=== PATIENT | female | born 1945 | race Caucasian/White ===

== ENCOUNTER 2019-01-25 14:40 | Observation (INO) ==
[2019-01-25] MEDS ORDERED: MOBIC PO PRN (15:11)
[2019-01-25] MEDS ORDERED: LOVENOX SUBQ ONE (15:55)
--- NOTE | 2019-01-25 16:17 | EKG Report ---
Test Performed on : 01/25/2019 3:25:32 PM Test Reason : new onset afib/sob Blood Pressure : / mmHG Vent. Rate : 095 BPM Atrial Rate : 095 BPM P-R Int : 162 ms QRS Dur : 076 ms QT Int : 340 ms P-R-T Axes : 062 039 047 degrees QTc Int : 427 ms Sinus rhythm. with premature atrial complexes. Low voltage QRS Cannot rule out Anterior infarct , age undetermined Abnormal ECG No previous ECGs available Confirmed by Zach PARKER, Shaun Mensah ([id number]) on 01/28/2019 4:37:53 PM
[2019-01-25 16:27] LABS: BASO# 0.08 X1000 (0.0-0.2); BASO% 0.5 % (0.0-0.8); EOS# 0.04 X1000 (0.0-0.7); EOS% 0.3 % (0.0-10.0); HEMOGLOBIN 11.9 g/dL (12.0-16.0); IMM GRAN# 0.06 X1000 (0.0-0.04); IMM GRAN% 0.4 % (0.0-0.5); LYMPH# 2.41 X1000 (1.2-3.4); MCH 28.3 PG (27-31); MCHC 33.1 g/dL (33-37); MCV 85.7 FL (81-99); MONO# 0.78 X1000 (0.11-0.59); MONO% 5.2 % (1.7-9.3); MPV 9.8 FL (7.4-10.4); NEUT# 11.72 X1000 (1.4-6.5); NEUT% 77.6 % (42.2-75.2); PLT 463 X1000 (130-400); WBC 15.09 X1000 (4.8-10.8)
[2019-01-25 16:40] LABS: EOS 2 % (1-10); LYMPHS 8 % (21-51); MONO 3 % (1-9); SEGS 84 % (42-75)
[2019-01-25 16:46] LABS: AGAP 10; ALKALINE PHOSPHATASE 106 U/L (32-104); BUN 17 mg/dL (8-22); CALCIUM 10.1 mg/dL (8.8-10.2); CHLORIDE 95 mmol/L (98-107); COSMO 265; CREATININE 0.7 mg/dL (0.5-0.9); ESTIMATED GFR > 60; GLUCOSE 108 mg/dL (70-104); GOT 21 U/L (10-30); GPT 41 U/L (10-36); MAGNESIUM 2.3 mg/dL (1.5-2.7); POTASSIUM 4.8 mmol/L (3.5-5.1); SODIUM 131 mmol/L (136-145); TCO2 26 mmol/L (25-35); TOTAL BILIRUBIN 0.59 mg/dL (0.20-1.00)
[2019-01-25 17:22] LABS: URINE SOURCE CLEAN CATCH
[2019-01-25 17:26] LABS: BILIRUBIN URINE NEGATIVE (NEGATIVE); BLOOD URINE NEGATIVE (NEGATIVE); COLOR STRAW; GLUCOSE URINE NEGATIVE (NEGATIVE); KETONE URINE NEGATIVE (NEGATIVE); LEUKOCYTES URINE LARGE (NEGATIVE); NITRITE URINE NEGATIVE (NEGATIVE); PROTEIN URINE NEGATIVE (NEGATIVE); TURBIDITY URINE CLEAR (CLEAR); UR EPITHELIAL CELLS <10 /HPF (<10); URINE BACTERIA 1+ /HPF; URINE RBC <10 /HPF (<10); URINE WBC TNTC /HPF (<10); UROBILINOGEN URINE NORMAL (NORMAL)
[2019-01-25] MEDS ORDERED: LOVENOX 1 MG/KG SUBQ ONE (19:19)
[2019-01-25] MEDS ORDERED: ROCEPHIN 1 GM in NS 50 ML IV SCH (19:30)
--- NOTE | 2019-01-25 19:44 | HISTORY AND PHYSICAL ---
CHIEF COMPLAINT: Palpitations. HISTORY OF PRESENT ILLNESS: This is a 73-year-old female with a history of hypertension, high cholesterol and seasonal allergies. She presents as a direct admit from Dr. Bustos's office after being found to be in atrial fibrillation with RVR with rates 100 - 140. The patient reports a sudden onset of palpitations with no accompanying symptoms. She did state that she had 1 episode of palpitations about 15 years ago that spontaneously resolved. On arrival to the floor she was found to be in a sinus rhythm at a rate of 95. PAST MEDICAL HISTORY: Hypertension, hyperlipidemia, osteoarthritis. SOCIAL HISTORY: She denies alcohol, tobacco or illicit drug use. ALLERGIES: Sulfa, with an unknown reaction. MEDICATIONS: Home medication list will be obtained by the nursing staff, and once reviewed we will restart as appropriate. REVIEW OF SYSTEMS: Discussed with the patient, with pertinent positives stated in the HPI. She denied any syncope, dizziness, any chest pain, shortness of breath, cough, fever, chills, any recent weight loss or weight gain, any night sweats, nausea, vomiting, diarrhea, constipation, black or bloody vomitus or stools, hematuria, dysuria, frequency or urgency. PHYSICAL EXAMINATION: GENERAL: This is a 73-year-old female who is lying in the bed in no distress. VITAL SIGNS: Blood pressure is 115/74 with a heart rate of 95, respirations are 18, temperature is 97.9 degrees with room air saturations of 100%. EYES: Pupils equal, round and reactive to light. EOMs are intact. Sclerae anicteric. HEENT: Head is normocephalic, atraumatic. Mucous membranes are moist. NECK: Supple, with trachea midline. CARDIOVASCULAR: Regular rate and rhythm. S1 and S2 appreciated. No murmurs. PULMONARY: Breath sounds are clear with no increased work of breathing noted. Chest rises and falls symmetric with respiration. GASTROINTESTINAL: Abdomen is soft, nontender, nondistended with bowel sounds in all 4 quadrants. GENITOURINARY: She has no CVA nor suprapubic tenderness. NEUROLOGIC: She is alert and oriented x3. SKIN: Warm and dry. ASSESSMENT AND PLAN: 1. Atrial fibrillation with rapid ventricular response. The patient has converted to sinus rhythm. We will give 1 dose of Lovenox 5 mg/kg, and further medications and anticoagulation will be per Cardiology's expertise. Dr. Zenon Lou has been consulted. He did discuss the patient with Dr. Bustos prior to admission. 2. History of hypertension. We will identify her home medications and continue as appropriate. 3. Recent urinary tract infection. We will obtain a urinalysis and a urine culture. Rocephin 1 gm q24 h. Of note, The patient was started on Cipro 01/23. She feels that Cipro is what caused this atrial fibrillation. She refuses to take Cipro at present. We will change her antibiotics. Further treatments pending hospital course. Patient seen and examined by me face to face, all the laboratory, vitals signs and images were reviewed, Patient presented has been sent by primary Doctor due to A fib with RVR, she has a history of hypertension, she has been treated with quinolones for her UTI and she believes this is the cause of her A fib, not sure about history of a fib before, at the moment of my physical exam she was on sinus rhythm, benign physical exam, patient has been evaluated by Cardiology, Dr Lou, he recommended aspirin for this patient, not anticoagulation at this moment, keep the patient with telemetry and discharge tomorrow if no more episodes of a fib, she has leucocytosis, probably do to her UTI, she has been placed on ceftriaxone, I agree with the rest of the [employer]'s assessment and plan, Nestor Valencia MD Dictated by JAKE Mccollum for Nestor Eddy MD cc: JAKE Mccollum MD [facility]
[2019-01-25] MEDS ORDERED: BENADRYL PO SCH (21:00)
[2019-01-25] MEDS ORDERED: ZOCOR PO SCH (21:00)
--- NOTE | 2019-01-26 07:17 | EKG Report ---
Test Performed on : 01/25/2019 7:59:18 PM Test Reason : afib Blood Pressure : / mmHG Vent. Rate : 067 BPM Atrial Rate : 067 BPM P-R Int : 176 ms QRS Dur : 078 ms QT Int : 408 ms P-R-T Axes : 040 046 053 degrees QTc Int : 431 ms Normal sinus rhythm. Normal ECG When compared with ECG of 25-JAN-2019 15:25, (Unconfirmed) premature atrial complexes. are no longer present Confirmed by Zach PARKER, Shaun Mensah ([id number]) on 01/28/2019 4:38:06 PM
[2019-01-26 08:06] LABS: BASO# 0.09 X1000 (0.0-0.2); BASO% 0.8 % (0.0-0.8); EOS# 0.16 X1000 (0.0-0.7); EOS% 1.4 % (0.0-10.0); HEMATOCRIT 36.9 % (37.0-47.0); HEMOGLOBIN 12.1 g/dL (12.0-16.0); IMM GRAN# 0.06 X1000 (0.0-0.04); IMM GRAN% 0.5 % (0.0-0.5); LYMPH# 3.18 X1000 (1.2-3.4); LYMPH% 27.2 % (20.5-51.1); MCH 28.1 PG (27-31); MCHC 32.8 g/dL (33-37); MCV 85.8 FL (81-99); MONO# 0.89 X1000 (0.11-0.59); MONO% 7.6 % (1.7-9.3); MPV 9.8 FL (7.4-10.4); NEUT% 62.5 % (42.2-75.2); PLT 455 X1000 (130-400); RDW 13.3 % (11.5-14.5); WBC 11.68 X1000 (4.8-10.8)
[2019-01-26 08:11] VITALS: BP 114/65
[2019-01-26 08:29] LABS: AGAP 12; BUN 16 mg/dL (8-22); CALCIUM 9.9 mg/dL (8.8-10.2); CHLORIDE 102 mmol/L (98-107); COSMO 277; CREATININE 0.7 mg/dL (0.5-0.9); ESTIMATED GFR > 60; GLUCOSE 107 mg/dL (70-104); POTASSIUM 4.6 mmol/L (3.5-5.1); SODIUM 138 mmol/L (136-145); TCO2 24 mmol/L (25-35)
[2019-01-26] MEDS ORDERED: PRINIVIL PO SCH (09:00)
[2019-01-26] MEDS ORDERED: ASPIRIN PO SCH (09:00)
--- NOTE | 2019-01-26 12:55 | ECHO REPORT ---
ORDER DATE: 01/25/2019 INDICATION: New onset atrial fibrillation. FINDINGS: 1. The right atrium appears normal in size at 3.4 cm. 2. Trace tricuspid regurgitation. RV systolic pressure of 43. 3. Normal RV size and systolic function. 4. Trace pulmonic insufficiency. 5. Mild left atrial enlargement with a volume index of 32. 6. No mitral valve prolapse. Trace mitral regurgitation. 7. Normal LV size, end-diastolic dimension of 4.1. Normal wall thicknesses with a posterior and interventricular septal wall thickness of 0.8 cm each. Normal LV systolic function. Estimated EF of 65% with normal wall motion. 8. The aortic valve appears somewhat sclerotic. It opens well. It is trileaflet. No evidence of stenosis or insufficiency. 9. The aorta appears normal in visualized segments. 10. No pericardial effusion seen. cc: MD Neville Bertrand MD
--- NOTE | 2019-01-26 18:51 | CONSULTATION ---
DATE OF CONSULTATION: 01/25/2019 IMPRESSION: 1. Episode of atrial fibrillation now resolved spontaneously. 2. Hypertension. 3. Hyperlipidemia. RECOMMENDATIONS: 1. Continue aspirin p.o. daily. 2. Echocardiography. 3. If recurrent atrial fibrillation, will consider anticoagulation with Eliquis. HISTORY: This 73-year-old white female with past history of hypertension and hyperlipidemia was referred for admission from Dr. Bustos's office after she was found to be in atrial fibrillation with rapid ventricular rate anywhere from 120 to 140 beats per minute. She reports the onset of tachy palpitations this morning. She had some mild postural lightheadedness with this. She had no chest discomfort nor syncope. She went to Dr. Bustos's office and was found to be in atrial fibrillation. She was given Bystolic 5 mg p.o. which was the only beta-shaka he had in his office. She was referred for admission to [facility] and came here by private automobile with her family driving. Upon arrival here, she has converted back to sinus rhythm. She is otherwise asymptomatic from a cardiovascular standpoint. PAST MEDICAL HISTORY: 1. Hypertension. 2. Hyperlipidemia. 3. Osteoarthritis. 4. Recent urinary tract infection treated with ciprofloxacin. ALLERGIES: She is allergic or intolerant to sulfa. MEDICATIONS PRIOR TO ADMISSION: As listed. SOCIAL HISTORY: She is a nonsmoker and does not use alcohol. FAMILY HISTORY: Negative for premature coronary disease. REVIEW OF SYSTEMS: Pulmonary: Negative. Gastrointestinal: Negative. Constitutional: Negative. Remainder review of systems negative/noncontributory with 14 total systems reviewed. PHYSICAL EXAMINATION: General: This is a pleasant, older white female in no distress. Vital signs: Blood pressure 120/75, heart rate 94 and regular. Oxygen saturation on room air 100%. HEENT: Extraocular movements intact. Mucous membranes moist. Neck: Supple without jugular venous distention. There are no carotid bruits. Chest: Clear to auscultation bilaterally. Cardiac Exam: Reveals a regular rate and rhythm without appreciable murmur or gallop. Abdomen: Soft. Bowel sounds are normal. Extremities: Without evidence of edema of edema. Neurologic: Reveals her to be alert and fully oriented. Speech is fluent. She moves all 4 extremities equally well. Skin: Warm and dry. Psychiatric: Reveals her mood to be appropriate. DATA: Twelve lead EKG demonstrates normal sinus rhythm within normal limits. LABORATORY DATA: Includes a white blood cell count 11.68, hematocrit 36.9, hemoglobin 12.1, platelet count 455,000. Sodium 138, potassium 4.6, chloride 102, carbon dioxide 24, BUN 16, creatinine 0.7. Glucose 107, magnesium 2.3. Troponin T less than 0.01. Pro-B natriuretic peptide level 218. Triglycerides 168, total cholesterol 151, LDL cholesterol 56, HDL cholesterol 61. cc: Zenon Lou MD
--- NOTE | 2019-01-27 05:36 | DISCHARGE SUMMARY ---
ADMISSION DATE: 01/25/2019 DISCHARGE DATE: 01/26/2019 PRIMARY CARE PHYSICIAN: Dr. Neville Bustos. DIAGNOSES: 1. Atrial fibrillation with rapid ventricular response, resolved. The patient is now in sinus rhythm. 2. History of hypertension. 3. Recent urinary tract infection with continued symptoms. DIAGNOSTICS: Echocardiogram revealed normal LV systolic function with estimated EF of 65%, with normal wall motion. The aortic valve appears somewhat sclerotic, it opens well, is trileaflet. No evidence of stenosis or insufficiency. No pericardial effusion. Trace pulmonic insufficiency. No mitral valve prolapse. CONSULTATIONS: Dr. Zenon Lou, Cardiology. HOSPITAL COURSE: Ms Gutierrez presented to the hospital as a direct admit from Dr. Bustos's office after having been found to be in atrial fib with RVR, with rates ranging from 100 to 140. She states that she had a sudden onset of "something fluttering in my chest," prompting her visit to Dr. Bustos. She was in sinus rhythm on arrival to the hospital and she has remained so. She has had no further palpitations. She denied any chest pain, any shortness of breath, any syncope or dizziness. We continued her home medications. Blood pressures have remained in the 115/74 to 114/65 range. She was given 1 mg/kg of Lovenox on arrival. As she converted to sinus rhythm, we did not continue after evaluation by Dr. Lou. It is recommended that she just go home on a baby aspirin daily. DISCHARGE VITAL SIGNS: Blood pressure is 114/65 with a heart rate of 64, respirations 18, temperature is 98 degrees, with room air saturations 97% to 100%. DISCHARGE PHYSICAL EXAM: Cardiovascular: Regular rate and rhythm. S1 and S2 appreciated. Pulmonary: Breath sounds are clear. No increased work of breathing noted. Gastrointestinal: Abdomen is soft, nontender, nondistended with bowel sounds in all 4 quadrants. Genitourinary: She has no CVA or suprapubic tenderness. Neurologic: She is alert oriented x3. Skin: Warm and dry. DISCHARGE MEDICATIONS: 1. Keflex 500 mg p.o. q.12 hours x6 days. 2. Aspirin 81 mg p.o. daily. 3. Simvastatin 40 mg p.o. daily. 4. Meloxicam 15 mg p.o. daily. 5. Lisinopril 20 mg p.o. daily. 6. Benadryl Allergy 25 mg p.o. at bedtime FOLLOWUP: 1. He is to follow up with Dr. Lou, appointment was scheduled for 02/07/2019 at 9:30 a.m. 2. Follow up with Dr. Bustos in the next 1 to 2 weeks. DISCHARGE INSTRUCTIONS: She has been instructed to call to be seen sooner or return to the emergency room for any syncope, dizziness, chest pain, palpitations, any shortness of breath, cough, temperature greater than 101, any nausea, vomiting, diarrhea, constipation, black or bloody vomitus or stools, or for any questions or concerns that she may have. She is being discharged home in stable condition with family members. TIME SPENT: This is a greater than 30 minute discharge. Dictated by JAKE Mccollum for Nestor Eddy MD cc: JAKE Mccollum MD Michael Putman, MD
== END 2019-01-26 11:56 | disposition home or self-care (01) ==
LOC: DIRADM 14:40 → SUATTDRO 14:40 → INTOOBSV 14:40 → 3S 14:47
PROVIDERS: ATTEND Internal Medicine
CPT/HCPCS: 71020; 71046; 80048; 80053; 81001; 82550; 83735; 83880; 84443; 84484; 85025; 87077; 87088; 87186; 93005; 93010; 93306; A9270; J0696; J1650

== ENCOUNTER 2019-02-07 12:52 | Observation (INO) ==
[2019-02-07] MEDS ORDERED: CARDIZEM 125 MG in NS 100 ML IV PRN (13:35)
[2019-02-07] MEDS ORDERED: CARDIZEM IV ONE (13:45)
--- NOTE | 2019-02-07 14:00 | EKG Report ---
Test Performed on : 02/07/2019 1:51:30 PM Test Reason : Afib RVR Blood Pressure : / mmHG Vent. Rate : 136 BPM Atrial Rate : 166 BPM P-R Int : 000 ms QRS Dur : 084 ms QT Int : 298 ms P-R-T Axes : 000 053 065 degrees QTc Int : 448 ms Atrial fibrillation. with rapid ventricular response. Nonspecific ST abnormality Abnormal ECG When compared with ECG of 25-JAN-2019 19:59, Atrial fibrillation. has replaced Sinus rhythm. Vent. rate has increased BY 69 BPM Non-specific change in ST segment in Inferior leads Non-specific change in ST segment in Anterolateral leads Confirmed by Zach PARKER, Shaun Mensah ([id number]) on 02/09/2019 10:52:52 AM
[2019-02-07] MEDS: CARDIZEM 125 MG in NS 100 ML IV SCH (14:23)
[2019-02-07 14:56] LABS: BASO# 0.07 X1000 (0.0-0.2); BASO% 0.8 % (0.0-0.8); EOS# 0.04 X1000 (0.0-0.7); EOS% 0.4 % (0.0-10.0); HEMATOCRIT 39.2 % (37.0-47.0); HEMOGLOBIN 12.8 g/dL (12.0-16.0); IMM GRAN# 0.03 X1000 (0.0-0.04); IMM GRAN% 0.3 % (0.0-0.5); LYMPH# 2.49 X1000 (1.2-3.4); LYMPH% 27.1 % (20.5-51.1); MCH 28.4 PG (27-31); MCHC 32.7 g/dL (33-37); MCV 86.9 FL (81-99); MONO# 0.55 X1000 (0.11-0.59); MPV 10.6 FL (7.4-10.4); NEUT# 6.02 X1000 (1.4-6.5); NEUT% 65.4 % (42.2-75.2); PLT 348 X1000 (130-400); RBC 4.51 XMIL (4.2-5.4); RDW 14.2 % (11.5-14.5)
[2019-02-07 15:09] LABS: AGAP 13; BUN 14 mg/dL (8-22); CALCIUM 9.7 mg/dL (8.8-10.2); CHLORIDE 109 mmol/L (98-107); COSMO 289; CREATININE 0.6 mg/dL (0.5-0.9); ESTIMATED GFR > 60; GLUCOSE 104 mg/dL (70-104); MAGNESIUM 2.1 mg/dL (1.5-2.7); POTASSIUM 3.9 mmol/L (3.5-5.1); SODIUM 145 mmol/L (136-145); TCO2 23 mmol/L (25-35)
[2019-02-07 17:33] LABS: URINE SOURCE CLEAN CATCH
[2019-02-07 17:38] LABS: BILIRUBIN URINE NEGATIVE (NEGATIVE); BLOOD URINE NEGATIVE (NEGATIVE); COLOR STRAW; GLUCOSE URINE NEGATIVE (NEGATIVE); KETONE URINE NEGATIVE (NEGATIVE); LEUKOCYTES URINE MODERATE (NEGATIVE); NITRITE URINE NEGATIVE (NEGATIVE); PH URINE 6.5; PROTEIN URINE NEGATIVE (NEGATIVE); TURBIDITY URINE CLEAR (CLEAR); UROBILINOGEN URINE NORMAL (NORMAL)
[2019-02-07 17:39] LABS: UR EPITHELIAL CELLS <10 /HPF (<10); URINE BACTERIA NEGATIVE /HPF; URINE RBC <10 /HPF (<10)
[2019-02-07] MEDS: LOVENOX SUBQ SCH (20:01)
[2019-02-08] MEDS: CARDIZEM 125 MG in NS 100 ML IV SCH (01:20)
[2019-02-08] MEDS: LOVENOX SUBQ SCH (09:05)
--- NOTE | 2019-02-08 09:23 | EKG Report ---
Test Performed on : 02/08/2019 07:46:08 AM Test Reason : Rhythm change Blood Pressure : / mmHG Vent. Rate : 074 BPM Atrial Rate : 074 BPM P-R Int : 186 ms QRS Dur : 080 ms QT Int : 412 ms P-R-T Axes : 052 049 063 degrees QTc Int : 457 ms Normal sinus rhythm. Normal ECG When compared with ECG of 07-FEB-2019 13:51, (Unconfirmed) Sinus rhythm. has replaced Atrial fibrillation. Vent. rate has decreased BY 62 BPM Non-specific change in ST segment in Lateral leads Confirmed by Zach PARKER, Shaun Mensah ([id number]) on 02/09/2019 10:54:03 AM
[2019-02-08] MEDS ORDERED: PRINIVIL PO SCH (11:15)
[2019-02-08] MEDS ORDERED: LOPRESSOR PO SCH (11:15)
[2019-02-08 11:26] VITALS: BP 104/55
--- NOTE | 2019-02-08 11:50 | PROGRESS NOTE ---
DATE: 02/08/2019 SUBJECTIVE: Patient converted back to sinus rhythm spontaneously early this morning. She continues without chest discomfort, dyspnea or palpitations. OBJECTIVE: Vital Signs: Blood pressure 97/61, heart rate 79 and regular, with ECG monitor showing sinus rhythm. Oxygen saturation 98% on room air. Neck: There is no significant jugular venous distention. There are no carotid bruits. Chest: Clear to auscultation. Cardiac Exam: Reveals a regular rate and rhythm without appreciable murmur or gallop. Extremities: There is no evidence of peripheral edema. LABORATORY DATA: Includes a white blood cell count of 9.2 hematocrit 39.2, hemoglobin 12.8, platelet count 348. Sodium 145, potassium 3.9, chloride 109, carbon dioxide 23. BUN 14, creatinine 0.6, magnesium 2.1. IMPRESSION: 1. Paroxysmal atrial fibrillation. 2. Hypertension. 3. Hyperlipidemia. RECOMMENDATIONS: 1. Discontinue intravenous diltiazem. 2. Discontinue Lovenox. 3. Initiate metoprolol 25 mg oral twice daily. 4. Initiate Eliquis 5 mg oral twice daily for thromboembolic risk. 5. Discharge this afternoon. cc: Zenon Lou MD
[2019-02-08] MEDS ORDERED: ELIQUIS PO SCH (21:00)
== END 2019-02-08 14:20 | disposition home or self-care (01) ==
LOC: DIRADM → 3S 12:52
PROVIDERS: ADMIT Internal Medicine Cardiovascular Disease; ATTEND Internal Medicine Cardiovascular Disease
CPT/HCPCS: 80048; 81001; 83735; 85025; 87088; 93005; 93010; 94761; A9270; J1650